=== PATIENT | female | born 1965 | race American Indian/Alaskan Native ===

== ENCOUNTER 2018-11-01 07:33 | Emergency (ER) | payer OTHER ==
[2018-11-01 07:52] VITALS: BP 148/84
[2018-11-01] MEDS ORDERED: IBUPROFEN 800 MG TAB PO ONE (08:05)
[2018-11-01] MEDS ORDERED: predniSONE 20 MG TAB PO ONE (08:06)
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
[2018-11-01] MEDS ORDERED: IBUPROFEN ORAL LIQD 100 MG/5 ML ORAL.LIQD PO ONE (08:14)
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
== END 2018-11-01 09:13 | disposition home or self-care (01) ==
LOC: ED 07:33
DX: S80.02XA Contusion of left knee, initial encounter (principal); V89.2XXA Person injured in unspecified motor-vehicle accident, traffic, initial encounter; Y93.89 Activity, other specified; Y92.410 Unspecified street and highway as the place of occurrence of the external cause; Y99.8 Other external cause status
CPT/HCPCS: 73562; 99283; J7512